=== PATIENT | male | born 1985 | race Caucasian/White ===

== ENCOUNTER → 2020-01-01 14:34 | Outpatient (CLI) | payer BC, SELFPAY ==
[2020-01-01 15:58] LABS: Add Manual Diff / Slide Review NO; Basophils Absolute Auto 0 /uL (0-100); Basophils Percent Auto 0.4 % (0-2); Eosinophils Absolute Auto 0 /uL (0-450); Eosinophils Percent Auto 0.9 % (2-4); Hematocrit 43.8 % (41-53); Hemoglobin 14.8 g/dL (13.5-17.5); Lymphocytes Absolute Auto 1000 /uL (1100-4500); Mean Corpuscular HGB Conc 33.8 % (30-36); Mean Corpuscular Hemoglobin 30.3 PG (26-34); Mean Corpuscular Volume 89.7 fL (80-100); Monocytes Absolute Auto 500 /uL (0-900); Monocytes Percent Auto 10.3 % (3-14); Neutrophils Absolute Auto 3500 /uL (1500-7000); Neutrophils Percent Auto 68.4 % (50-75); Platelet Count 389 X10^3/uL (150-400); Red Blood Cell Count 4.88 X10^6/uL (4.5-5.9); Red Cell Distribution Width 13.1 % (11.6-14.8); White Blood Cell Count 5.1 X10^3/uL (4.5-11.0)
[2020-01-01 16:15] LABS: Alanine Aminotransferase 17 IU/L (<50); Albumin 4.8 g/dL (3.5-5.0); Albumin Globulin Ratio 1.7 (1.0-2.8); Alkaline Phosphatase 43 U/L (38-126); Aspartate Aminotransferase 25 IU/L (17-59); BUN Creatinine Ratio 14.6 (6-22); Bilirubin Total 0.7 mg/dL (0.2-1.3); Blood Urea Nitrogen 14 mg/dL (9-20); Calcium 10.1 mg/dL (8.4-10.2); Carbon Dioxide 25 mmol/L (22-32); Chloride 104 mmol/L (98-107); Estimated Glomerular Filt Rate > 60.0 mL/min (>60); Globulin 2.9 g/dL (1.7-4.1); Glucose 91 mg/dL (70-100); HEMOLYSIS < 15 (0-50); Lipase 76 U/L (23-300); Potassium 4.1 mmol/L (3.4-5.1); Sodium 138 mmol/L (137-145); Total Protein 7.7 g/dL (6.3-8.2)
== END ==
PROVIDERS: Referring Provider Physician Assistant; Visit Provider Physician Assistant
DX: R11.2 Nausea with vomiting, unspecified (principal); R10.13 Epigastric pain
CPT/HCPCS: 36415; 80053; 83516; 83690; 85025; 86255

== ENCOUNTER 2021-04-09 13:24 | Emergency (ER) | payer BC, SELFPAY ==
[2021-04-09 13:36] VITALS: BP 141/91; PULSE 83; RESP 19; TEMP 36.3; O2SAT 96; BMI 25.0
--- NOTE | 2021-04-09 13:43 | DI.RAD.S_ITS ---
PROCEDURE: XR CHEST 2V INDICATIONS: covid positive TECHNIQUE: 2 views of the chest were acquired. COMPARISON: [facility], , CHEST 2VW, 08/27/2010, 22:32. FINDINGS: Surgical changes and devices: None. Lungs and pleura: Lungs are clear without definite acute airspace opacities. No pleural effusions or pneumothorax. Mediastinum: Mediastinal contours are normal. Heart size is normal. Bones and chest wall: No suspicious bony abnormalities. Soft tissues appear unremarkable. IMPRESSION: 1. No definite evidence of pneumonia. Dictated by: Thad Collins M.D. on 04/09/2021 at 14:28 Approved by: Thad Collins M.D. on 04/09/2021 at 14:29
--- NOTE | 2021-04-09 15:10 | ED_ITS ---
HPI - URI/Sore Throat General Chief Complaint: Upper Respiratory Symptoms Stated Complaint: COVID +,LUNGS FEELING HEAVY/SORE/EARACHE Time Seen by Provider: 04/09/21 15:02 Source: patient Mode of arrival: Family Vehicle Limitations: no limitations History of Present Illness HPI Narrative: Patient is a 35-year-old male who presents with known COVID positive. Had last night and yesterday he started noticing worsening cough. No fever or chills. He is fully vaccinated. He started having symptoms 4 days ago. Children also got it. Everyone and family seems to be doing better. He was concerned because of the coughing. Related Data Allergies Allergy/AdvReac Type Severity Reaction Status Date / Time No Known Allergies Allergy Uncoded 09/11/17 12:30 Review of Systems Review of Systems Narrative: GENERAL: See HPI HEENT: Denies sinus pain, ear pain, sore throat, difficulty swallowing, neck pain RESPIRATORY: See HPI CARDIOVASCULAR: Denies chest pain, palpitations, orthopnea, edema GASTROINTESTINAL: Denies nausea, vomiting, abdominal pain, diarrhea, constipation, melena. : Denies dysuria, frequency, incontinence, hematuria, urinary retention, flank pain. MUSCULOSKELETAL: Denies weakness, joint pain, or bony pain SKIN: No rash, no erythema, no pruritus NEUROLOGIC: Denies weakness, dizziness, headache, numbness, change in speech, confusion PSYCHIATRIC: No concerning psychosocial issues. 12 point review of systems is negative except for those stated above and HPI Patient History Social History Smoking Status: Former smoker Smoking Status: Former smoker tobacco type: cigarettes alcohol intake frequency: a few times a week Substance Use Type: does not use Exam Initial Vital Signs Initial Vital Signs: Vital Signs Temperature 97.4 F L 04/09/21 13:36 Pulse Rate 83 04/09/21 13:36 Respiratory Rate 19 04/09/21 13:36 Blood Pressure 141/91 H 04/09/21 13:36 Pulse Oximetry 96 04/09/21 13:36 GENERAL: Well-appearing, well-nourished and in no acute distress. HEENT: Head atraumatic,EOMI, pupils reactive, face symmetric, moist mucous membranes CARDIOVASCULAR: Regular rate and rhythm without murmurs, rubs or gallops. RESPIRATORY: Breath sounds equal bilaterally, no wheezes rales or rhonchi. EXTREMITIES: Normal range of motion, no clubbing or edema. Neurovascularly intact NEUROLOGICAL: Alert and oriented x4.Normal gait and speech. SKIN: Warm, dry, no laceration, no petechiae, no rashes or lesions. Course Orders Ordered: ED Orders 04/09/21 13:43 XR chest 2V Stat Vital Signs Vital signs: Vital Signs - 8 hr 04/09/21 13:36 04/09/21 15:38 Temperature 97.4 F L Pulse Rate 83 62 Respiratory Rate 19 18 Blood Pressure 141/91 H 118/74 Pulse Oximetry 96 98 MDM - URI/Sore Throat Imaging Data Chest x-ray: Radiologist's Impression: PROCEDURE:? XR CHEST 2V ? INDICATIONS:? covid positive ? TECHNIQUE:? 2 views of the chest were acquired.? ? COMPARISON:? [facility], , CHEST 2VW, 08/27/2010, 22:32. ? FINDINGS:? ? Surgical changes and devices:? None.? ? Lungs and pleura:? Lungs are clear without definite acute airspace opacities.? No pleural effusions or pneumothorax.? ? Mediastinum:? Mediastinal contours are normal.? Heart size is normal.? ? Bones and chest wall:? No suspicious bony abnormalities.? Soft tissues appear unremarkable.? ? IMPRESSION:? ? 1. No definite evidence of pneumonia.? ? ? Dictated by: Thad Collins M.D. on 04/09/2021 at 14:28 ? ? Discharge Plan Departure Patient Disposition: Home Clinical Impression: COVID-19 Instructions: DI for COVID-19 (Suspected or Confirmed ) Activity Restrictions/Additional Instructions: * if you have not yet been vaccinated is still recommended and encouraged that you do so once your infection has passed At home: -Monitor oxygen with pulse oximeter. -Wash hands frequently. -Stay isolated at home please follow the isolation instructions below. -Increase fluid intake. -you may take Tylenol as directed if needed for pain or fever Emergency warning signs for COVID-19: - Difficulty breathing or shortness of breath, oxygen less than 90% - Persistent pain or pressure in the chest - New confusion or inability to arouse - Bluish lips or face CDC Guidelines for home isolation: - Stay away from others - Limit contact with pets and animals: If you must care for a pet, wash your muniz ds before and after interacting with them - Wear a mask while in public all places - Cover your mouth and nose with a tissue when you cough or sneeze. Dispose of tissues in a lined trash can and wash your hands immediately with soap and water for at least 20 seconds. If soap and water are not available, clean hands with alcohol-based hand actimize architect that contains at least 60% alcohol. - Clean your hands often with soap and water for at least 20 seconds - Avoid touching your eyes, nose and mouth with unwashed hands - Do not share dishes, drinking glasses, cups, eating utensils, towels, or bedding with other people in your home. After using these items, wash them thoroughly with soap and water or put in the accounts supervisor. - Clean high-touch surfaces in your isolation area (?sick room? and bathroom) every day; let a caregiver clean and disinfect high-touch surfaces in other areas of the home. Clean the area or item with soap and water or another detergent if it is dirty. Then, use a household disinfectant. Referrals: [facility] [Outside]
[2021-04-09 15:38] VITALS: BP 118/74; PULSE 62; RESP 18; O2SAT 98
== END 2021-04-09 15:41 | disposition home or self-care (01) ==
PROVIDERS: Emergency Provider Emergency Medicine
DX: U07.1 COVID-19 (principal)
CPT/HCPCS: 71046; 99281; 99283

== ENCOUNTER → 2021-12-15 14:00 | Outpatient (CLI) | payer BC, SELFPAY ==
[2021-12-15 15:45] LABS: Semen Sperm Prescence Post-Vas Absent (ABSENT)
== END ==
PROVIDERS: Referring Provider Urology; Visit Provider Urology
DX: Z30.09 Encounter for other general counseling and advice on contraception (principal)
CPT/HCPCS: 89321